=== PATIENT | male | born 1945 | race Caucasian/White ===

== ENCOUNTER → 2021-02-01 10:55 | Outpatient (CLI) | payer OTHER, SELFPAY ==
[2021-02-01 11:51] LABS: Add Manual Diff / Slide Review NO; Basophils Absolute Auto 0 /uL (0-100); Basophils Percent Auto 0.8 % (0-2); Eosinophils Absolute Auto 0 /uL (0-450); Eosinophils Percent Auto 1.1 % (2-4); Hematocrit 43.4 % (41-53); Hemoglobin 14.7 g/dL (13.5-17.5); Lymphocytes Absolute Auto 1300 /uL (1100-4500); Lymphocytes Percent Auto 28.7 % (25-40); Mean Corpuscular HGB Conc 33.9 % (30-36); Mean Corpuscular Hemoglobin 30.6 PG (26-34); Mean Corpuscular Volume 90.4 fL (80-100); Monocytes Absolute Auto 500 /uL (0-900); Monocytes Percent Auto 10.6 % (3-14); Neutrophils Absolute Auto 2600 /uL (1500-7000); Neutrophils Percent Auto 58.8 % (50-75); Platelet Count 254 X10^3/uL (150-400); Red Blood Cell Count 4.81 X10^6/uL (4.5-5.9); Red Cell Distribution Width 13.1 % (11.6-14.8); White Blood Cell Count 4.5 X10^3/uL (4.5-11.0)
[2021-02-01 12:04] LABS: Hemoglobin A1C% w Est Avg Glu 5.4 % (4.0-6.0)
[2021-02-01 12:53] LABS: BUN Creatinine Ratio 16.9 (6-22); Blood Urea Nitrogen 14 mg/dL (9-20); Calcium 9.5 mg/dL (8.4-10.2); Carbon Dioxide 28 mmol/L (22-32); Chloride 103 mmol/L (98-107); Estimated Glomerular Filt Rate > 60.0 mL/min (>60); Glucose 97 mg/dL (80-110); HEMOLYSIS < 15 (0-50); Potassium 4.8 mmol/L (3.4-5.1); Sodium 138 mmol/L (137-145)
== END ==
PROVIDERS: Family Provider Hospitalist; PCP Family Medicine; Referring Provider Orthopaedic Surgery; Visit Provider Orthopaedic Surgery
DX: Z01.812 Encounter for preprocedural laboratory examination (principal); R73.9 Hyperglycemia, unspecified; Z01.818 Encounter for other preprocedural examination; M24.561 Contracture, right knee
CPT/HCPCS: 36415; 80048; 83036; 85025; 93005

== ENCOUNTER → 2021-03-10 10:51 | Outpatient (CLI) | payer OTHER, SELFPAY ==
[2021-03-10 13:02] LABS: COVID19 -Nasal RAPID Negative (Negative)
== END ==
PROVIDERS: Family Provider Hospitalist; PCP Family Medicine; Visit Provider Physician Assistant
DX: Z20.822 Contact with and (suspected) exposure to COVID-19 (principal)
CPT/HCPCS: 87635; C9803

== ENCOUNTER 2021-03-13 05:59 | Day surgery (SDC) | payer OTHER, SELFPAY ==
[2021-03-06 12:55] VITALS: BMI 24.9
[2021-03-13] VITALS (18 sets, daily range): BP systolic 97–146; BP diastolic 63–93; PULSE 58–82; RESP 14–20; TEMP 35.8–36.8; O2SAT 94–100; BMI 24.9
--- NOTE | 2021-03-13 06:43 | DI.RAD.S_ITS ---
PROCEDURE: XR KNEE RT 1TO2V INDICATIONS: Postoperative prosthesis placement TECHNIQUE: 2 view(s) of the knee acquired. COMPARISON: None. FINDINGS: Bones: Patient is status post knee joint arthroplasty. Hardware components are in expected positions. Visualized bony structures are intact. Soft tissues: Overlying postoperative changes are noted. IMPRESSION: Expected appearance status post total knee arthroplasty. Dictated by: Vinay Farnsworth M.D. on 03/13/2021 at 10:08 Approved by: Vinay Farnsworth M.D. on 03/13/2021 at 10:08
[2021-03-13] MEDS: PREGABALIN 75 MG CAPSULE PO (07:24)
[2021-03-13] MEDS: ACETAMINOPHEN 325 MG TABLET 975 MG PO (07:24)
[2021-03-13] MEDS: CELECOXIB 200 MG CAPSULE PO (07:24)
[2021-03-13] MEDS: LACTATED RINGERS 1,000 ML 42 ML IV ×2 (07:26→09:29)
--- NOTE | 2021-03-13 07:33 | PM.PREOP ---
Pre-operative Note COVID-19 COVID-19 status: Negative Result date/Date tested (Pos, Neg/Pending): 03/10/21 Interval Note History & Physical reviewed/Exam performed by Physician: Yes Changes to H&P: No
--- NOTE | 2021-03-13 07:34 | P.OP_ITS ---
Operative Date/Time/Diagnoses Date of procedure: 03/13/21 Time of procedure: 09:34 Pre-op diagnosis: Right knee osteoarthritis Post-op diagnosis: same (With iatrogenic partial patellar tendon avulsion from the tibia.) Procedure & Clinicians Procedure: 1. Right total knee replacement 2. Repair of partial tibial tendon avulsion Same procedure as scheduled: Yes Indications: The patient has had progressively worsening right knee pain with radiographic changes consistent with arthritis. Non-operative management has failed and the patient has requested total knee replacement. The risks, benefits and alternatives to surgery were discussed with the patient prior to proceeding. Risks discussed included, but were not limited to, failure to relieve pain, stiffness, infection, nerve damage, deep venous thrombosis, pulmonary embolism, stroke, coma, heart attack, permanent paralysis and , as well as the potential need for eventual revision of the prosthetic. Surgeon: Tobias Lawton Carpenter Prototype: Patrick Maki Click Yes if Unassisted: No Anesthesia Type: Local Operative Notes Findings: Severe medial and moderately severe patellofemoral osteoarthritis. Varus deformity requiring release. Small flexion contracture requiring 1 mm deeper than normal cut. Closure Type: primary Specimen(s): none sent Prosthetic devices, grafts, tissues, transplants, or devices: Implants used in this procedure were manufactured by the [employer] and [employer] and included the BCS II Journey total knee replacement with a size 6 right Oxinium femoral component, a size 6 right non porous tibial base plate, a 9 mm cross-linked polyethylene tibial insert and a 38 mm oval Tena II patella. One [employer] Healix Advance BR 5.5 mm triple threaded suture anchor. Applied: implant(s) Estimated Blood Loss (mL): 50 Blood products transfused: none Tourniquet time (min): 50 Procedure in detail: The patient was seen in the pre-operative area, where the patient identified the right knee as the operative site and this was marked with my initials. The patient received pre-operative antibiotics, and was taken to the operating room and placed on the operative table in the supine position. After satisfactory anesthesia, a multimedia instructional designer out was performed. The right leg was encircled with a tourniquet about the proximal thigh, and the leg was prepared from the toes to the tourniquet with ChloroPrep in the usual fashion and draped through sterile drapes. The leg was elevated and exsanguinated with Eschmark bandage and the tourniquet inflated to 250 mmHg pressure. The knee was approached through an approximately 18 cm incision centered over the patella and carried into the knee through a medial parapatellar arthrotomy. During flexion of the knee, a partial avulsion of the insertion of the patellar tendon on the tibia was created. The anterior osteophytes and soft tissues were removed. The rotational landmarks of Otis's line and the transepicondylar axis were marked on the femur with electrocautery, and intramedullary guide holes for the femur and tibia were created. The distal femoral cut was made in 6 degrees of valgus using the intramedullary guide at the +1 cut setting due to his mild flexion contracture. The proximal tibial cut was then made using the intramedullary guide, taking 9 mm of bone off the less involved side. The extension gap was checked and the rotation of the femoral component confirmed with the gap balancing system. His varus deformity required a medial release off the tibia. The anterior, posterior and chamfer cuts were then made. The posterior osteophytes and soft tissues were then removed. The posterior capsule was injected with part of a mixture of 60 ml 0.25% Marcaine mixed with 20 ml Exp arel and 4 mg of morphine for post-operative pain control. The remainder of this mixture was injected into the capsule and subcutaneous tissues during cement curing. The tibia was prepared with the rotation set by an extra medullary guide. Trial tibial and femoral components were then placed and the intercondylar notch cut through the femoral trial. Range of motion was 0-135 degrees, with good st ability throughout the range. The patella was then cut to accommodate the patellar prosthetic. There was no need for a lateral release. The trials were then removed, and the femoral hole plugged with a bone plug. The bone was prepared with pulsatile lavage, and dried with a sponge. Cement was applied and the final prosthetics placed. Excess cement was removed during and after cement curing. After confirming there was no extruded cement posteriorly, the final tibial insert was placed. The knee was copiously irrigated and the tourniquet deflated. Hemostasis was obtained. The capsule was closed with interrupted # 2 polyester suture. And a single [employer] Healix Advance BR 5.5 mm triple threaded anchor was placed in the area of the avulsed tendon and used to repair the partial avulsion. Subcutaneous layer was closed with 3-0 Vicryl, and the skin with a running 3-0 V-Lock suture and Dermabond. An Aquacel Ag dressing was applied and the patient was taken to recovery having tolerated the procedure well. Post-operative Condition: stable Disposition: PACU Plan for aftercare: The patient will be maintained on a standard total knee replacement protocol with weight bearing as tolerated. The patient will receive aspirin and sequential compression devices for DVT prophylaxis. The patient will be discharged home when safe for the home environment.
--- NOTE | 2021-03-13 07:47 | PM.PROC.1 ---
Procedures Date/Time Date of procedure: 03/13/21 Time of procedure: 07:41 Nerve Block Time out performed: Yes Local anesthetic used: bupivacaine 0.25% Location of anesthetic used: RIGHT Nerve blocks: femoral (adductor canal) Procedure successful: Yes Patient tolerated procedure: well and no complications Complications: none Additional comments: Adductor canal nerve block performed for post-op pain control at surgeon request. Patient was positioned with IV, O2, monitors and rescue meds available. Prepped and timeout performed. Target identified with continuous ultrasound guidance. 20mL of bupivicaine 0.25% was injected perineurally with intermittent aspiration and injection. No blood, no paresthesias, no acute complications. Ultrasound pic attained.
--- NOTE | 2021-03-13 07:48 | SUR.PREOP ---
Block start time [0741] . Monitoring initiated and maintained throughout procedure. Oxygen and medications given per anesthesiologist instructions. Patient remained stable throughout procedure, no adverse reactions noted. Block end time [0745].
[2021-03-13] MEDS: CEFAZOLIN 2 GM/20 ML SYRINGE IV (08:01)
[2021-03-13] MEDS: TRANEXAMIC ACID 1,000 MG VIAL 1000 MG INJ ×2 (08:01→09:04)
--- NOTE | 2021-03-13 08:37 | SUR.OPER ---
Supine on padded OR bed. Pillow under head, arms secured on padded armboards <90 degree abduction. Safety belt across torso. Non-operative leg secured with tape over blanket over lower leg. Operative leg secured in DeMayo/Angel/Nathe positioner. Foam padded brace at thigh of operative leg.
[2021-03-13] MEDS: BUPIVACAINE LIPOSOME 266 MG/20 ML VIAL INJ (08:53)
[2021-03-13] MEDS: BUPIVACAINE 0.25% (PF) 60 ML, EPINEPHrine 0.3 MG INJ (08:53)
[2021-03-13] MEDS: MORPHINE 4 MG/ML INJ INJ (08:54)
[2021-03-13] MEDS: IBUPROFEN 400 MG TABLET PO ×3 (12:48→21:39)
[2021-03-13] MEDS: LACTATED RINGERS 1,000 ML 100 ML IV ×2 (12:48→21:38)
--- NOTE | 2021-03-13 15:03 | PT.IIE ---
Current Diagnoses Unilateral primary osteoarthritis, right knee (03/13/21) Surgery Performed Operation Date: 03/13/21 07:45 Actual Procedures p Total Knee Arthroplasty(Right) - Tobias Lawton MD Medical History (Last Updated 03/06/21 @ 13:11 by Jyotsna Parkinson RN) Depression HLD (hyperlipidemia) Osteoarthritis PVCs (premature ventricular contractions) Physical Therapy Inpatient Evaluation/Re-Eval M1 PT/OT-IP Prior Functional Status Start: 03/13/21 11:33 Freq: NEEDED Status: Active Protocol: Document 03/13/21 15:03 JG (Rec: 03/13/21 16:00 J [id number]) Medical Review Prior Functional Status Medical History Reviewed Yes Diet/Fluid Consistency Regular Communication Pt was able to communicate needs fully Mobility and Gait painful amb during last few golf holes, walks entire golf course. doesn't use any AD. Activities of Daily Living and IADL's indep in all ADLs Prior Functional Level (Other details) able to downhill ski (stopped 2 years ago) Social History Household Members spouse Living Arrangements House Number of Floors (Floors) Two Floors Number of Stairs To Enter/Railing? No JACK. 12 steps to access 2nd floor, railing on L when ascending. Home Environment Standard Height Toilet,Walk in Shower,Tub/Shower Home Equipment Front Wheel Walker,Hand Held Shower,Long Handled Shoe Horn, Grab Bars In Shower Employment Status Retired Additional Social History Comment Lives with Jyotsna in [facility]. They want to go home same day, but Jyotsna doesn't like to drive in the dark and it would be dark by the time pt is discharged. Walk in shower is upstairs, shower w/ tub is downstairs. M2 PT-IP Current Condition Start: 03/13/21 11:33 Freq: NEEDED Status: Active Protocol: Document 03/13/21 15:03 JG (Rec: 03/13/21 16:00 J [id number]) Physical Therapy Current Condition Current Condition Evaluation Date 03/13/21 Treatment Diagnosis Post R TKA, difficulty walking , decreased ROM, decreased strength Onset Date 03/13/21 M3 PT-IP Subjective Start: 03/13/21 11:33 Freq: NEEDED Status: Active Protocol: Document 03/13/21 15:03 JG (Rec: 03/13/21 16:00 [id number]) Subjective Physical Therapy Visit Type Type Initial Evaluation Visit Start Time 14:13 Visit Stop Time 15:03 Total Visit Minutes 50 Notes SPT Chastity was directly supervised by DPMarium Pineda Number of DAMAGE ADJUSTER Visits 0 Physical Therapy Visit Comments Patient Comments Pt was quite willing to participate in PT. Pt would prefer to go home today, but is mildly hesitant about 45-[address] and stairs to access bedroom at home. Pt says he can also sleep downstairs on the sofa. Patient Goals Pain-free amb. Return to skiing end of this season or next season. Therapy Pain Assessment Pain When Pain Assessed At Rest Pain Present Pain Present Pain Reported Location R Knee Scale Used 3 at beginning, 4 at end of session Pain Management Techniques Apply Cold,Re-positioning, Timing of Activity with Medications M4 PT-IP Mobility and Gait Start: 03/13/21 11:33 Freq: NEEDED Status: Active Protocol: Document 03/13/21 15:03 (Rec: 03/13/21 16:00 [id number]) PT-Bed Mobility Assessment Rolling Type of Rolling Log Rolling,Roll to Right,Roll to Left,Bilateral Level of Assist Standby Assistance,1 Person Assistance Supine to Sit Supine to Sit Minimal Assistance,1 Person Assistance Scooting Scooting to Edge of Bed Standby Assistance PT-Transfer Assessment Sit to and From Stand Sit to and from Stand Minimal Assistance,1 Person Assistance Equipment Transfer Assistive Device Gait Belt,Front Wheeled Walker Orthotic/Prosthetic Devices or Brace: No Transfers Transfer Destination Chair,Toilet Transfer Technique amb w/FWW Transfer Ability Level of Assist Contact Guard Assistance,1 Person Assistance Comments Mobility Comments Pt found bed mob and sit<> stand mild-mod challenging due to R knee limited ROM. After mod verbal and visual cueing, pt completed sit<>stand w/ improved form. Before mobility , pt's vitals were 150/90, 80 bpm, 95%. This is higher than baseline and previous vitals checks today. After mobility, pt's vitals were 136/91, 82 bpm, 97%. Pain also was beginning to climb from 3/10 to 4/10. Nursing was notified of both pain and high BP. Gait Assessment Gait Gait Assistance Required: Contact Guard Assist,1 Person Assist Distance (Feet) 162 Able to Maintain Weight Bearing Status Yes During Gait Assistive Devices Assistive Device Gait Belt,Front Wheeled Walker Orthotic/Prosthetic Devices or Brace: No Gait Deviations General Gait Pattern Decreased Stride Length, Decreased Feet Clearance,Step- to Gait Factors Limiting Gait Function Factors Limiting Gait Function Decreased Activity Tolerance, Decreased Sensation,Decreased Strength,Limited Range of Motion,Pain Comments Gait Comments Pt amb CGA w/FWW and reported feeling confident he could amb at home. Pt managed FWW w/min cueing and mod use of UE. Pt amb w/gait deviations noted above. Stair Climbing Assessment Evaluation Level of Assist On Stairs Contact Guard Assistance,1 Person Assistance Devices Stair Climbing Assistive Devices Left Railing Technique/Endurance Stair Climbing Direction Ascend and Descend Stair Climbing Technique Step to Step Number of Steps Climbed 6 Query Text: Stair Climbing Set # Repetitions (reps) 2 Comments Stair Climbing Comments Pt req mod cueing for foot placement and CGA for amb up/ down stairs. Pt was able to maintain weight bearing during and didn't req rest after stairs. PT-Balance Assessment Sitting Balance and Reactions Static Sitting Balance Ability Normal Dynamic Sitting Balance Ability Normal Standing Balance and Reactions Static Standing Balance Ability Normal Dynamic Standing Balance Ability Good Device Used gait belt, FWW M5 PT-IP Objective Assessments Start: 03/13/21 11:33 Freq: NEEDED Status: Active Protocol: Document 03/13/21 15:03 J (Rec: 03/13/21 16:00 [id number]) Orientation Orientation/Cognition Level of Alertness Alert Orientation Name,Place,Situation Language Function Ability No Deficits Noted Safety Awareness Understands Safety Issues Memory Description No Deficits Noted Gross Range of Motion Lower Extremity ROM Assessment Right Impaired Strength Lower Extremity Strength Assessment Right Impaired Coordination Assessment Gross Coordination Gross Coordination WNL Sensation Assessment Sensation Gross Sensation Right LE Impaired,Left LE Impaired Light Touch Impaired Proprioception (Position) Intact Sensation Description Numbness Comments Sensation Comments from surgery Muscle Tone Muscle Tone WNL Yes M6 PT-IP Treatment Start: 03/13/21 11:33 Freq: NEEDED Status: Active Protocol: Document 03/13/21 15:03 JG (Rec: 03/13/21 16:00 [id number]) Physical Therapy Treatment Exercises Exercises Ankle Pumps,Quad Sets,Passive Knee Extension Hang Education Education Provided Weight Bearing Status,Post-Op Packet,Safety M7 PT-IP Assessment and Plan Start: 03/13/21 11:33 Freq: NEEDED Status: Active Protocol: Document 03/13/21 15:03 RIMMA (Rec: 03/13/21 16:00 RIMMA [id number]) PT Summary Assessment and Plan Potential Rehabilitation Potential Excellent Status of Condition at Evaluation Evolving Summary Impairments Pain,ROM,Strength,Sensation, Gait,Activity Tolerance Assessment Summary Pt is 75 year old male seen same day after R TKA. Pt's LE sensation was still mildly impaired bilat. Pt and pt's had several questions regarding home setup and, through discussion w/SPT and PT, were able to decide on first choice strategies. Pt tolerated postural changes very well even though he started w/higher BP compared to previous vital checks. Pt has successfully completed gait and stair assessment, however pt will benefit from additional IP PT to increase activity tolerance to safely amb in home. Goals Bed Mobility Goal Independent Transfer Goal Independent,Front Wheeled Walker Gait Goal Independent,Front Wheel Walker Gait Distance 250 Other Goals Pt can amb 12 stairs SBA w/ step-to gait and L railing use Days to Meet Goals 2 Frequency of Treatment Frequency Of Treatment Twice a Day Treatment Plan Physical Therapy Treatment Plan Bed Mobility Training,Transfer Training,Gait Training, Therapeutic Exercise,Balance Retraining,Post Op Education, Discharge Planning,Hot or Cold Pack,Neuromuscular Re-ed, Manual Therapy Other Recommendations and Next Treatment Gait and stair training. Focus Seated and supine therapeutic exercise. Discharge and caregiver planning. Weight Bearing Status Weight Bearing Status Weight Bear as Tolerated Recommendations To Nursing Amount of Assist Needed Standby Assistance,1 Person Assist Discharge Recommendations PT Discharge Recommendations Home,Outpatient PT Transportation Needs at Discharge Private Vehicle Treatment was provided by Chastity Retana, SPT and supervised by Miriam Underwood, PT. I personally reviewed this note and agree with its contents.
[2021-03-13] MEDS: ACETAMINOPHEN 325 MG TABLET 650 MG PO ×2 (15:19→21:39)
[2021-03-13] MEDS: OXYCODONE IR 10 MG TABLET PO (15:19)
[2021-03-13] MEDS: OXYCODONE IR 5 MG TABLET PO (19:45)
--- NOTE | 2021-03-13 19:49 | PC.NURSE ---
Pt arrived from PACU at 1040, A&OX3. Initially reported numbness down lower extremities and unable to wiggle toes. Gradually increased sensation to full sensation and strength/movement back to LE's. He reports pain well controlled and able to participate with PT/OT. Ambulating with SBA using FWW, voiding w/o difficulty. He has goot po intake this evening and denies n/v. Pt's at bedside supportive. Dressing C/D/I with asad wrap to R knee. Ice pack in place.
[2021-03-13] MEDS: ATORVASTATIN 20 MG TABLET PO (21:38)
[2021-03-13] MEDS: ASPIRIN EC 81 MG TABLET PO (21:39)
[2021-03-13] MEDS: DOCUSATE 100 MG CAPSULE PO (21:39)
[2021-03-14 00:02] VITALS: BP 117/71; PULSE 67; RESP 16; TEMP 36.7; O2SAT 96
[2021-03-14] MEDS: IBUPROFEN 400 MG TABLET PO ×3 (00:16→08:49)
[2021-03-14 04:15] VITALS: BP 119/67; PULSE 64; RESP 14; TEMP 37.1; O2SAT 96
[2021-03-14 06:42] LABS: Hematocrit 35.2 % (41-53); Hemoglobin 12.2 g/dL (13.5-17.5)
[2021-03-14 07:38] VITALS: BP 123/73; PULSE 65; RESP 16; TEMP 37; O2SAT 98
--- NOTE | 2021-03-14 07:52 | PM.DS.1 ---
History of Present Illness History of Present Illness Date Patient Seen: 03/14/21 Time Patient Seen: 07:52 Chief complaint: OPB Narrative: The history and physical is contained in the chart previously completed note. Please refer to that note for this information. Discharge Providers Provider Date of admission: March 13, 2021 Discharge Date: 03/14/21 Consults: 03/13/21 11:19 Consult to Discharge Planning Routine Comment: Consult to Physical Therapy Evaluate & Treat Comment: Physician Instructions: postop TKA protocol Discharge provider: Tobias Lawton MD Summary Hospital Course Discharge Diagnosis: 1. Right knee osteoarthritis 2. Post hemorrhagic anemia Hospital Course: The patient was admitted to the hospital and taken directly to the operating room March 13, 2021 where he underwent a uncomplicated right total knee replacement. He was stable postoperative day 1 but was noted to have a mild post hemorrhagic anemia. He was stable and ready for discharge home. Status at Discharge Cognitive/behavioral status at discharge: oriented Functional status at discharge: uses cane/walker Overall status at discharge: patient is progressing back to baseline Time Spent with Patient Time spent: Less than 30 minutes Exam Vital Signs (past 8 hours): - 03/14/21 00:02 03/14/21 04:15 Temperature 98.1 F 98.8 F Pulse Rate 67 64 Respiratory Rate 16 14 Blood Pressure 117/71 119/67 Pulse Oximetry 96 96 Oxygen Delivery Method Room Air Oxygen Flow Rate 0 Narrative Exam Narrative: Right knee wound is dressed with no drainage on the bandage. Calf is soft. Light touch and motion are intact in the right lower extremity. Objective Labs Result Diagrams: 03/14/21 06:30 Labs: Laboratory Results - last 24 hr 03/14/21 06:30 Hgb 12.2 L Hct 35.2 L PFSH Medical History (Updated 03/06/21 @ 13:11 by Jyotsna Parkinson RN) Depression HLD (hyperlipidemia) Osteoarthritis PVCs (premature ventricular contractions) Surgical History (Updated 03/06/21 @ 13:11 by Jyotsna Parkinson RN) History of arthroplasty of left shoulder History of arthroscopy of right shoulder History of prostate surgery History of testicular surgery Hx of arthroscopy of left knee Hx of arthroscopy of right knee Hx of foot surgery Hx of shoulder surgery Social History household members: spouse Smoking Status: Former smoker alcohol intake: current Discharge Assessment & Plan Assessment and Plan Assessment: Stable postoperative day 1 with the exception of mild post hemorrhagic anemia which had resolved spontaneously. Plan of Treatment: Discharged home, follow up in my office in 10-14 days. A prescription has been called in for pain medication of oxycodone. He has been instructed on the use of Tylenol and ibuprofen for pain relief and the use of low-dose aspirin for DVT prophylaxis. Discharge Plan Discharge Plan Patient Disposition: Home Discharge orders & Medications Discharge Orders: Discharge (Order); Ordered 03/14/21 Ordered By: Tobias Lawton Prescriptions: New acetaminophen 325 mg Tablet 650 mg PO TID 30 Days Qty: 180 0RF aspirin 81 mg Tablet,Delayed Release (Dr/Ec) 81 mg PO BID 42 Days Qty: 84 0RF ibuprofen 400 mg Tablet 400 mg PO Q4HR 30 Days 0RF oxycodone 5 mg Tablet 5 mg PO Q4H PRN (Reason: Pain, Moderate (4-6)) Qty: 40 0RF Continued simvastatin 40 mg Tablet 40 mg PO BEDTIME 0RF Discontinued ibuprofen 200 mg Tablet 400 mg PO BID PRN (Reason: Pain) 0RF Follow up/Referrals: Tobias Lawton MD [Physician] - 2 Weeks Diet/Activity/Treatments Diet: Diet as Tolerated and Regular Activity: You may bear weight as tolerated on your right leg. Cold/Heat Therapy: Apply ice for 15 minutes every hour as needed for pain control to the right knee. Skin/Wound/Dressing Care Report to your healthcare provider any signs of infection, such as:: chills, fever, night sweats, increased pain, unusual drainage and unusual redness Dressing: You may remove the David wrap 3 days after surgery and shower normally with the deeper dressing in place. Leave the deeper dressing in place until your postoperative follow-up. If it becomes saturated with either water or blood, please call the office to have it evaluated. Visit Report/Discharge Packet Instructions: DI for Knee Replacement Stand Alone Forms: Surgery Discharge Discharge Data Attending Provider: Tobias Lawton Quality VTE Deep Vein Thrombosis/Pulmonary Embolism Present on Admission: No
[2021-03-14] MEDS: ASPIRIN EC 81 MG TABLET PO (08:48)
[2021-03-14] MEDS: DOCUSATE 100 MG CAPSULE PO (08:48)
[2021-03-14] MEDS: ACETAMINOPHEN 325 MG TABLET 650 MG PO (08:48)
--- NOTE | 2021-03-14 09:34 | PT.IPTN ---
Current Diagnoses Unilateral primary osteoarthritis, right knee (03/13/21) Surgery Performed Operation Date: 03/13/21 07:45 Actual Procedures p Total Knee Arthroplasty(Right) - Tobias Lawton MD Physical Therapy Treatment Note M2 PT-IP Current Condition Start: 03/13/21 11:33 Freq: NEEDED Status: Discharge Protocol: Document 03/13/21 15:03 JG (Rec: 03/13/21 16:00 JG [id number]) Physical Therapy Current Condition Current Condition Evaluation Date 03/13/21 Treatment Diagnosis Post R TKA, difficulty walking , decreased ROM, decreased strength Onset Date 03/13/21 M3 PT-IP Subjective Start: 03/13/21 11:33 Freq: NEEDED Status: Discharge Protocol: Document 03/14/21 09:10 KS (Rec: 03/14/21 11:27 KS [id number]) Subjective Physical Therapy Visit Type Type Treatment Note Visit Start Time 09:10 Visit Stop Time 09:34 Total Visit Minutes 24 Notes Pts present during treatment Number of SUPERVISOR FILES Visits 1 Physical Therapy Visit Comments Patient Comments Pt agreeable to working w/ therapy. M4 PT-IP Mobility and Gait Start: 03/13/21 11:33 Freq: NEEDED Status: Discharge Protocol: Document 03/14/21 09:10 KS (Rec: 03/14/21 11:27 KS [id number]) PT-Bed Mobility Assessment Supine to Sit Supine to Sit Standby Assistance Scooting Scooting to Edge of Bed Standby Assistance PT-Transfer Assessment Sit to and From Stand Sit to and from Stand Standby Assistance,1 Person Assistance,Use of Upper Extremities Equipment Transfer Assistive Device Gait Belt,Front Wheeled Walker Orthotic/Prosthetic Devices or Brace: No Transfers Transfer Destination Chair Transfer Technique amb w/FWW Transfer Ability Level of Assist Contact Guard Assistance,1 Person Assistance Comments Mobility Comments Pt in bed upon arrival from therapy. SBA fort sup<>sit, scooting EOB, and sit<>stand w / FWW/. Pt then ambulated `80 ft to practice stairs SBA w/ FWW w/ cues for equal step length, gait improved w/ cues and distance. Pt then ascended /descended 3 steps w/ L rail w / providing CGA. Pt and his state they feel safe to complete stairs at home. He then ambulated additional ~80 ft back to room SBA w/ FWW and transferred to chair SBA. Pt completed ankle pumps, quad sets, glute sets, heel slides , and SLR and was left in chair w/ all needs in reach. Gait Assessment Gait Gait Assistance Required: Standby Assistance,1 Person Assist Distance (Feet) 170 Able to Maintain Weight Bearing Status Yes During Gait Assistive Devices Assistive Device Gait Belt,Front Wheeled Walker Orthotic/Prosthetic Devices or Brace: No Gait Deviations General Gait Pattern Decreased Stride Length, Decreased Feet Clearance,Step- to Gait Factors Limiting Gait Function Factors Limiting Gait Function Decreased Activity Tolerance, Decreased Sensation,Decreased Strength,Limited Range of Motion,Pain Comments Gait Comments Pt SBA w/ FWW, gait improved w / cues for quad activation and equal step length. Stair Climbing Assessment Evaluation Level of Assist On Stairs Contact Guard Assistance,1 Person Assistance Devices Stair Climbing Assistive Devices Left Railing Technique/Endurance Stair Climbing Direction Ascend and Descend Stair Climbing Technique Step to Step Number of Steps Climbed 3 Stair Climbing Set # Repetitions (reps) 1 Comments Stair Climbing Comments Pt ascended/descended 3 steps w/ L rail step to pattern w/ providing CGA. Both report they feel safe to complete steps at home. PT-Balance Assessment Sitting Balance and Reactions Static Sitting Balance Ability Normal Dynamic Sitting Balance Ability Normal Standing Balance and Reactions Static Standing Balance Ability Normal Dynamic Standing Balance Ability Good Device Used gait belt, FWW M5 PT-IP Objective Assessments Start: 03/13/21 11:33 Freq: NEEDED Status: Discharge Protocol: Document 03/13/21 15:03 J (Rec: 03/13/21 16:00 [id number]) Orientation Orientation/Cognition Level of Alertness Alert Orientation Name,Place,Situation Language Function Ability No Deficits Noted Safety Awareness Understands Safety Issues Memory Description No Deficits Noted Gross Range of Motion Lower Extremity ROM Assessment Right Impaired Strength Lower Extremity Strength Assessment Right Impaired Coordination Assessment Gross Coordination Gross Coordination WNL Sensation Assessment Sensation Gross Sensation Right LE Impaired,Left LE Impaired Light Touch Impaired Proprioception (Position) Intact Sensation Description Numbness Comments Sensation Comments from surgery Muscle Tone Muscle Tone WNL Yes M6 PT-IP Treatment Start: 03/13/21 11:33 Freq: NEEDED Status: Discharge Protocol: Document 03/14/21 09:10 KS (Rec: 03/14/21 11:27 KS [id number]) Physical Therapy Treatment Exercises Exercises Ankle Pumps,Gluteal Sets,Quad Sets,Heel Slides,Straight Leg Raises Education Education Provided Weight Bearing Status,Post-Op Packet,Safety M7 PT-IP Assessment and Plan Start: 03/13/21 11:33 Freq: NEEDED Status: Discharge Protocol: Document 03/14/21 09:10 KS (Rec: 03/14/21 11:27 KS [id number]) PT Summary Assessment and Plan Potential Rehabilitation Potential Excellent Status of Condition at Evaluation Evolving Summary Impairments Pain,ROM,Strength,Sensation, Gait,Activity Tolerance Assessment Summary Pt SBA for bed mobility, transfers, and gait and CGA for stairs. Good tolerance for activity, safe w/ FWW, and gait improved w/ cues and distance. was able to provide CGA on stairs. Goals Bed Mobility Goal Independent Transfer Goal Independent,Front Wheeled Walker Gait Goal Independent,Front Wheel Walker Gait Distance 250 Other Goals Pt can amb 12 stairs SBA w/ step-to gait and L railing use Days to Meet Goals 2 Frequency of Treatment Frequency Of Treatment Twice a Day Treatment Plan Physical Therapy Treatment Plan Bed Mobility Training,Transfer Training,Gait Training, Therapeutic Exercise,Balance Retraining,Post Op Education, Discharge Planning,Hot or Cold Pack,Neuromuscular Re-ed, Manual Therapy Other Recommendations and Next Treatment Gait and stair training. Focus Seated and supine therapeutic exercise. Discharge and caregiver planning. Weight Bearing Status Weight Bearing Status Weight Bear as Tolerated Recommendations To Nursing Amount of Assist Needed Standby Assistance,1 Person Assist Discharge Recommendations PT Discharge Recommendations Home,Outpatient PT Transportation Needs at Discharge Private Vehicle
--- NOTE | 2021-03-14 10:39 | PC.NURSE ---
A&Ox4. VSS. Room air. Pain 04/10 well controlled with Tylenol and ibuprofen. Cap refill <2 sec, sensation intact. Okayed from PT for discharge. IV removed. Discharge instructions reviewed. Questions answered. Off of unit at 10:35, driving home.
--- NOTE | 2021-03-14 11:03 | CM.DANOTE ---
DCP: Case received, EMR reviewed and met with patient. Spouse, Jyotsna, was also at bedside. Introduced self and role. Was able to obtain information regarding patient's baseline activity status prior to surgery. DCP assessment completed with information currently available. Patient is a 75 year old male who admitted yesterday morning to the care of the orthopedic team. PCP: Dr. Gonzalez. Payer: confirmed: [employer]age. Patient came to the hospital via private vehicle for a surgical procedure. Patient had a right total knee replacement. Patient has history of osteoarthritis. Met with patient and spouse in the room. Patient is alert and oriented, wanting to go home as soon as he can. He was awaiting working with therapy. He and his spouse both reside in [place]. He is active at his baseline, he golfs and walks the course. The only DME he uses is walking sticks for long distances. P: Patient has discharge orders for home today after he works with [employer]. Katlyn Dye RN/Anatomical Embalmer Discharge Planning/Care Management CM Discharge Assessment Start: 03/14/21 11:01 Freq: Status: Active Protocol: Document 03/14/21 11:01 (Rec: 03/14/21 11:03 [id number]) Discharge Planning Assessment Assigned Escalation Engineer Katlyn Dye RN/Anatomical Embalmer Advance Directives? Yes Advance Directives on File No History Provided By Patient,Medical Record Prior Living Arrangements House Household Members spouse Type of transporation used prior to Drives own vehicle admit Independent with ADL's Yes Is patient alert and oriented? Yes Caregiver for Another No DME Already Rented / Owned Other Comment Patient uses a walking stick for distance walking Patient/Family Preference OP PT Therapy Barriers to Discharge No Discharge Plan Home Transportation Arrangement Spouse Referrals Initiated None needed Whiteboard Updated in Patient Room with Yes name and ext. # of Escalation Engineer Review Status In Process Next Review Type Continued Stay Review Pre-Anesthesia Assessment Start: 03/06/21 12:55 Freq: Status: Discharge Protocol: Document 03/06/21 12:55 CAB (Rec: 03/06/21 13:27 CAB [id number]) Pre-Anesthesia Assessment Preferred Name Sanjiv Patient Information Reviewed Via Phone Assessment Assessment Completed With Patient Diagnostic Results BMP/CMP,CBC,EKG Comment Labs/EKG @ [facility] 02/01/21, COVID screen @ [facility] 03/10/21 Primary Care Provider Mark Gonzalez Seen Specialist in Last 12 Months Yes Specialist Seen Orthopedist,Urologist Primary Language Tajik Hunter Trapper Required No Height 5 ft 9 in Weight 169 lb Body Mass Index (BMI) 24.9 Hearing Ability Normal Visual Assist Glasses Dentition Type Partial- Upper Barriers to Learning None Hx Anesthesia Reactions No Hx Family Anesthesia Reaction No Hx Malignant Hyperthermia No Hx Blood Transfusions No Anesthesia Review Requested No alcohol intake current alcohol intake frequency 0-2 drinks per day Smoking Status Former smoker how long ago did patient quit smoking Quit in his 20's Substance Use Type does not use Pain Present Pain Reported Musculoskeletal Symptoms Abnormal Gait,Difficulty Walking,Joint Pain History of Falling (Recent or History of No ) Patient is completely paralyzed or No completely immobile Mental Status Oriented to own ability Is patient on oxygen? No Does patient have LUNA/SOB No Hx Sleep Apnea No Currently Taking a Beta [place] No Hx Chest Pain No Hx SOB No Hx Syncope or Dizziness No Anti-Coagulant Therapy No Has a Production Support Manager No Cardiac Testing No Hx Pacemaker/ICD No Pacemaker Rep Required? No Cardiac Clearance Received Not Applicable Diet Type At Home Regular dysphagia No Gastrointestinal Symptoms Constipation Urinary Catheter Present No Hx Urinary Self Catheterization No Diabetes No Presence of External or Internal Medical Yes: Prostate eduardo Devices Have you had any close contact with No someone diagnosed with COVID-19? Received a COVID vaccine? Yes Received all doses? Yes Marital Status Lives With spouse Prior Living Arrangements House Number of Floors (Floors) Two Floors Support System Spouse Does the Patient Have Assistance After Yes Surgery Patient Discharge Plan Description Return Home Comment Pt advised possible same day surgery per surgeon Feels Safe in Current Environment Yes Been Physically Hurt or Threatened By a No Person in Current Environment Do you have thoughts of harming yourself None or others? Are you currently considering suicide? No Do you have a plan to hurt yourself or No Plan others? Do You Have Any Spiritual Beliefs That No May Affect Your HC Choices? Do You Have Any Cultural Practices That No May Affect Your HC Choices? Who Can We Speak to About Patient's Care Family, friends Identifying Code for Release of Patient Declines to issue Information Health Care Proxy/Next of Kin Jyotsna () Health Care Proxy Emergency Contact Name Jyotsna () Emergency Contact Advance Directives? Yes Advance Directives on File No Requested Patient Bring Advanced Yes Directives DOS Power of Graphics Edit Technician Yes Power of Graphics Edit Technician Name Jyotsna () Power of Graphics Edit Technician PAC Instructions Durable medical equipment, Medications to take/avoid, Nasal antibiotic,No ETOH/ petroleum product on skin DOS, NPO,Post-op transportation,Pre -surgical wash,Sensory aids, Sturdy shoes/comfortable clothes,Do not bring valuables and remove jewelry
== END 2021-03-14 10:35 | disposition home or self-care (01) ==
LOC: OR 06:15 → AC 06:15
PROVIDERS: Family Provider Hospitalist; PCP Family Medicine; Referring Provider Orthopaedic Surgery; Visit Provider Orthopaedic Surgery
PROC: 0SRC0JZ Replacement of Right Knee Joint with Synthetic Substitute, Open Approach (ICD-10-PCS; CPT 27447; principal; 2021-03-13 07:45)
DX: M17.11 Unilateral primary osteoarthritis, right knee (principal); S86.891A Other injury of other muscle(s) and tendon(s) at lower leg level, right leg, initial encounter; F32.9 Major depressive disorder, single episode, unspecified; G43.909 Migraine, unspecified, not intractable, without status migrainosus; E78.00 Pure hypercholesterolemia, unspecified
CPT/HCPCS: 27447; 36415; 64450; 73560; 85014; 85018; 97110; 97116; 97161; C1776; C9290; J0171; J0690; J1100; J2250; J2270; J2704